=== PATIENT | female | born 1970 | race Caucasian/White ===

== ENCOUNTER → 2016-11-07 | Outpatient (CLI) | payer MEDICAID, BC ==
[2016-11-07 10:44] LABS: Basophils # (A) 0.1 k/uL (0-0.2); Basophils % (A) 1 %; CH 30.2; CHCM 32.2; Eosinophils # (A) 0.2 k/uL (0-0.7); Eosinophils % (A) 2 %; HCT 46.2 % (34.0-46.0); HDW 2.02; HGB 14.7 gm/dL (11.4-16.0); Luc # (Auto) 0.32; Luc % (Auto) 3; Lymphocytes # (A) 2.8 k/uL (1.0-4.8); Lymphocytes % (A) 30 %; MCHC 31.9 g/dL (31.0-37.0); MCV 94.2 fL (80.0-100.0); Mean Platelet Volume 6.8; Monocytes # (A) 0.7 k/uL (0-1.0); Monocytes % (A) 7 %; Neutrophils # (A) 5.1 k/uL (1.3-7.7); Neutrophils % (A) 55 %; RBC 4.91 m/uL (3.80-5.40); RDW 13.2 % (11.5-15.5); WBC 9.3 k/uL (3.8-10.6); WBC (Perox) 9.14
[2016-11-07 11:24] LABS: ALT 33 U/L (9-52); AST 23 U/L (14-36); Alkaline Phosphatase 93 U/L (38-126); Anion Gap 10 mmol/L; Blood Urea Nitrogen 18 mg/dL (7-17); Calcium 9.7 mg/dL (8.4-10.2); Carbon Dioxide 27 mmol/L (22-30); Chloride 105 mmol/L (98-107); Cholesterol 232 mg/dL (<200); Glucose 84 mg/dL (74-99); HDL Cholesterol 72 mg/dL (40-60); Non-African American GFR(MDRD) >60 (>60 ml/min/1.73 sqM); Potassium 4.6 mmol/L (3.5-5.1); Sodium 142 mmol/L (137-145); Total Bilirubin 0.6 mg/dL (0.2-1.3); Total Protein 7.2 g/dL (6.3-8.2); Triglycerides 111 mg/dL (<150)
== END | disposition home or self-care (01) ==
LOC: LABWHC1 08:44
PROVIDERS: ATTEND Family Medicine
DX: Z00.00 Encounter for general adult medical examination without abnormal findings (principal)
CPT/HCPCS: 36415; 80053; 80061; 85025

== ENCOUNTER → 2017-02-28 | Outpatient (CLI) | payer OTHER ==
--- NOTE | 2017-02-28 17:53 | XR ---
EXAMINATION TYPE: XR chest 2V DATE OF EXAM: 02/28/2017 COMPARISON: 05/22/2011 HISTORY: Chest pain TECHNIQUE: Frontal and lateral views of the chest are obtained. FINDINGS: There is no focal air space opacity. No evidence for pneumothorax. No pleural effusion. The cardiac silhouette size is within normal limits. The osseous structures are grossly intact. IMPRESSION: 1. No acute cardiopulmonary process.
--- NOTE | 2017-02-28 17:54 | XR ---
EXAMINATION TYPE: XR thoracic spine complete DATE OF EXAM: 02/28/2017 CLINICAL HISTORY: pain TECHNIQUE: Frontal, lateral, and swimmer's view of thoracic spine are obtained. COMPARISON: None. FINDINGS: Thoracic spine show satisfactory alignment without evidence of acute fracture or dislocatio n. Vertebral body heights are preserved. Mild scattered degenerative disc space narrowing and spondy losis. Visualized ribs are unremarkable. IMPRESSION: No acute fracture or dislocation is seen in the thoracic spine. ICD 10 NO FRACTURE, INIT IAL EVALUATION
== END | disposition home or self-care (01) ==
LOC: RADXRMAIN 17:24
PROVIDERS: ATTEND Emergency Medicine
DX: S23.3XXA Sprain of ligaments of thoracic spine, initial encounter (principal)
CPT/HCPCS: 71020; 72072

== ENCOUNTER 2019-12-27 03:30 | Emergency (ER) | payer BC, MEDICAID ==
[2019-12-27] MEDS ORDERED: SODIUM CHLORIDE 0.9% 1,000 ML IV STA ×2 (03:39→06:12)
--- NOTE | 2019-12-27 03:40 | ED ---
Fall HPI - General Stated Complaint: ETOH, Fall Time Seen by Provider: 12/27/19 03:38 Source: RN notes reviewed, old records reviewed, Caregiver (friend at bedside) Mode of arrival: EMS Limitations: no limitations, altered mental status (alcohol intoxication) - History of Present Illness Initial Comments: This is a 29-year-old female presents here by EMS for evaluation of fall significant alcohol intoxication. Patient admits to drinking 5 beers tonight, per EMS patient fell off a porch at about 1-1:30 tonight and mental status significantly gotten worse from that point. Per EMS patient was disoriented not acting appropriately upon arrival. Patient is having decreased sensation difficulty with controlling her left arm. 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: yes, by bystander Place Fall Occurred: home Loss of Consciousness: none Prolonged Down Time?: no Symptoms Prior to Fall: none Location: head Severity: moderate Severity scale (1-10): 3 Context: tripped/slipped Associated Symptoms: denies - Related Data Home Medications Medication Instructions Recorded Confirmed No Known Home Medications 12/27/19 12/27/19 Allergies Allergy/AdvReac Type Severity Reaction Status Date / Time latex Allergy Rash/Hives Verified 12/27/19 10:09 Sulfa (Sulfonamide Allergy Rash/Hives Verified 12/27/19 10:09 Antibiotics) Review of Systems ROS Statement: Those systems with pertinent positive or pertinent negative responses have been documented in the HPI. ROS Other: All systems not noted in ROS Statement are negative. General Exam - General Exam Comments Initial Comments: NIH of 7 Patient has left-sided weakness, left-sided sensation deficit, with facial droop and left-sided weakness, patient is left-sided drift which is worsening while here in the ER Limitations: altered mental status General appearance: alert, appears intoxicated, anxious, in distress Head exam: Present: atraumatic, normocephalic, normal inspection Eye exam: Present: normal appearance, PERRL, EOMI. Absent: scleral icterus, conjunctival injection, periorbital swelling ENT exam: Present: normal exam, mucous membranes moist Neck exam: Present: normal inspection. Absent: tenderness, meningismus, lymphadenopathy Respiratory exam: Present: normal lung sounds bilaterally. Absent: respiratory distress, wheezes, rales, rhonchi, stridor Cardiovascular Exam: Present: normal rhythm, tachycardia, normal heart sounds. Absent: systolic murmur, diastolic murmur, rubs, gallop, clicks GI/Abdominal exam: Present: soft, normal bowel sounds. Absent: distended, tenderness, guarding, rebound, rigid Extremities exam: Present: normal inspection, full ROM, normal capillary refill. Absent: tenderness, pedal edema, joint swelling, calf tenderness Back exam: Present: normal inspection Neurological exam: Present: altered, oriented X3, CN II-XII intact Psychiatric exam: Present: normal affect, normal mood Skin exam: Present: warm, dry, intact, normal color. Absent: rash Course Vital Signs 12/27/19 12/27/19 12/27/19 03:36 04:00 04:15 Temperature 98 F Pulse Rate 105 H 100 108 H Respiratory 16 18 18 Rate Blood Pressure 127/90 126/78 130/62 O2 Sat by Pulse 97 98 98 Oximetry 12/27/19 12/27/19 12/27/19 04:30 04:45 05:00 Temperature Pulse Rate 106 H 102 H 101 H Respiratory 18 18 18 Rate Blood Pressure 128/79 122/64 124/81 O2 Sat by Pulse 98 98 97 Oximetry 12/27/19 12/27/19 12/27/19 05:15 05:30 05:45 Temperature Pulse Rate 99 99 98 Respiratory 18 18 18 Rate Blood Pressure 117/71 127/77 123/72 O2 Sat by Pulse 98 98 98 Oximetry 12/27/19 12/27/19 12/27/19 06:00 06:30 07:00 Temperature Pulse Rate 99 99 98 Respiratory 18 18 18 Rate Blood Pressure 121/88 113/61 120/70 O2 Sat by Pulse 98 97 98 Oximetry 12/27/19 12/27/19 12/27/19 08:00 09:19 11:15 Temperature Pulse Rate 94 94 80 Respiratory 20 20 20 Rate Blood Pressure 124/77 120/62 122/69 O2 Sat by Pulse 97 97 97 Oximetry - Reevaluation(s) Reevaluation #1: 12/27/19 04:01 medical record is reviewed Reevaluation #2: 12/27/19 04:36 Spoke with friend who is at bedside, states that patient was able to ambulate up the stairs at 2am. Patient went outside for cigarette around 130 fell was brought inside the house they did notice some head injury and some bruising to her face, she did walk under her own power up the stairs at 2a and then later had significant episodes of vomiting greater than no is a patient wasn't really responding well and bring patient to emergency department by calling EMS, patients last drink was around 1a Reevaluation #3: 12/27/19 05:[address] Smith who patient not TPA candidate due to multiple factors including mainly alcohol severe intoxication and inability to consent to TPA, difficult to assess timing, improving symptoms Reevaluation #4: Patient symptoms still rapidly improving here in the emergency department - Consultations Consultation #1: Spoke with Dr. Tomlin was agreeable for admission Medical Decision Making - Medical Decision Making 49 female DF for evaluation, reassess multiple times here in the ER, unable to consent to TPA secondary to alcohol intoxication, patient symptoms continue to improve, focal neurological deficit is improving MH currently 2 patient be admitted for further neurological evaluation, MRI brain and monitoring for alcohol withdrawal - Lab Data Result diagrams: 12/27/19 03:44 12/27/19 03:44 Lab Results 12/27/19 12/27/19 12/27/19 Range/Units 03:44 03:44 03:44 WBC 10.8 H (3.8-10.6) k/uL RBC 4.93 (3.80-5.40) m/uL Hgb 14.9 (11.4-16.0) gm/dL Hct 46.1 H (34.0-46.0) % MCV 93.6 (80.0-100.0) fL MCH 30.2 (25.0-35.0) pg MCHC 32.3 (31.0-37.0) g/dL RDW 13.1 (11.5-15.5) % Plt Count 296 (150-450) k/uL Neutrophils % 54 % Lymphocytes % 31 % Monocytes % 7 % Eosinophils % 3 % Basophils % 1 % Neutrophils # 5.9 (1.3-7.7) k/uL Lymphocytes # 3.4 (1.0-4.8) k/uL Monocytes # 0.8 (0-1.0) k/uL Eosinophils # 0.3 (0-0.7) k/uL Basophils # 0.1 (0-0.2) k/uL PT 9.4 (9.0-12.0) sec INR 0.9 (<1.2) APTT 23.4 (22.0-30.0) sec Sodium 142 (137-145) mmol/L Potassium 4.5 (3.5-5.1) mmol/L Chloride 106 (98-107) mmol/L Carbon Dioxide 24 (22-30) mmol/L Anion Gap 12 mmol/L BUN 15 (7-17) mg/dL Creatinine 0.64 (0.52-1.04) mg/dL Est GFR (CKD-EPI)AfAm >90 (>60 ml/min/1.73 sqM) Est GFR (CKD-EPI)NonAf >90 (>60 ml/min/1.73 sqM) Glucose 116 H (74-99) mg/dL POC Glucose (mg/dL) (75-99) mg/dL POC Glu Roading Engineer ID Calcium 9.6 (8.4-10.2) mg/dL Phosphorus 4.0 (2.5-4.5) mg/dL Magnesium 2.1 (1.6-2.3) mg/dL Total Bilirubin 0.3 (0.2-1.3) mg/dL AST 31 (14-36) U/L ALT 32 (4-34) U/L Alkaline Phosphatase 116 (38-126) U/L Troponin I (0.000-0.034) ng/mL Total Protein 7.6 (6.3-8.2) g/dL Albumin 4.7 (3.5-5.0) g/dL Serum Alcohol 202 H* mg/dL Coronavirus (PCR) (Not Detectd) 12/27/19 12/27/19 12/27/19 Range/Units 03:44 03:44 07:59 WBC (3.8-10.6) k/uL RBC (3.80-5.40) m/uL Hgb (11.4-16.0) gm/dL Hct (34.0-46.0) % MCV (80.0-100.0) fL MCH (25.0-35.0) pg MCHC (31.0-37.0) g/dL RDW (11.5-15.5) % Plt Count (150-450) k/uL Neutrophils % % Lymphocytes % % Monocytes % % Eosinophils % % Basophils % % Neutrophils # (1.3-7.7) k/uL Lymphocytes # (1.0-4.8) k/uL Monocytes # (0-1.0) k/uL Eosinophils # (0-0.7) k/uL Basophils # (0-0.2) k/uL PT (9.0-12.0) sec INR (<1.2) APTT (22.0-30.0) sec Sodium (137-145) mmol/L Potassium (3.5-5.1) mmol/L Chloride (98-107) mmol/L Carbon Dioxide (22-30) mmol/L Anion Gap mmol/L BUN (7-17) mg/dL Creatinine (0.52-1.04) mg/dL Est GFR (CKD-EPI)AfAm (>60 ml/min/1.73 sqM) Est GFR (CKD-EPI)NonAf (>60 ml/min/1.73 sqM) Glucose (74-99) mg/dL POC Glucose (mg/dL) 111 H (75-99) mg/dL POC Glu Roading Engineer ID Fuentes Landy Calcium (8.4-10.2) mg/dL Phosphorus (2.5-4.5) mg/dL Magnesium (1.6-2.3) mg/dL Total Bilirubin (0.2-1.3) mg/dL AST (14-36) U/L ALT (4-34) U/L Alkaline Phosphatase (38-126) U/L Troponin I <0.012 (0.000-0.034) ng/mL Total Protein (6.3-8.2) g/dL Albumin (3.5-5.0) g/dL Serum Alcohol mg/dL Coronavirus (PCR) Not Detected (Not Detectd) - EKG Data -: EKG Interpreted by Me (EKG shows sinus tachycardia rate 102, PA 150, QRS 80, QTC 466) - Radiology Data Radiology results: report reviewed (CT brain is negative for acute disease, CT had neck negative for acute disease), image reviewed Critical Care Time Critical Care Time: Yes Total Critical Care Time: 31 Disposition Clinical Impression: Altered mental status, Alcohol intoxication, CVA (cerebral vascular accident) Disposition: ADMITTED IP TO THIS [facility] Condition: Fair Is patient prescribed a controlled substance at d/c from ED?: No Referrals: Mata Flores Jr, [Primary Care Provider] - 1-2 days
[2019-12-27 03:42] VITALS: TEMP 98
[2019-12-27 03:49] LABS: Glucose,Whole Blood 111 mg/dL (75-99)
[2019-12-27 04:06] LABS: Basophils # (A) 0.1 k/uL (0-0.2); Basophils % (A) 1 %; Eosinophils # (A) 0.3 k/uL (0-0.7); Eosinophils % (A) 3 %; HCT 46.1 % (34.0-46.0); HGB 14.9 gm/dL (11.4-16.0); Lymphocytes # (A) 3.4 k/uL (1.0-4.8); Lymphocytes % (A) 31 %; MCH 30.2 pg (25.0-35.0); MCHC 32.3 g/dL (31.0-37.0); MCV 93.6 fL (80.0-100.0); Mean Platelet Volume 7.1; Monocytes # (A) 0.8 k/uL (0-1.0); Monocytes % (A) 7 %; Neutrophils # (A) 5.9 k/uL (1.3-7.7); Neutrophils % (A) 54 %; Platelet Count 296 k/uL (150-450); RBC 4.93 m/uL (3.80-5.40); RDW 13.1 % (11.5-15.5); WBC 10.8 k/uL (3.8-10.6)
[2019-12-27 04:10] LABS: ALT 32 U/L (4-34); AST 31 U/L (14-36); African American GFR (CKD) >90 (>60 ml/min/1.73 sqM); Albumin 4.7 g/dL (3.5-5.0); Alkaline Phosphatase 116 U/L (38-126); Anion Gap 12 mmol/L; Blood Urea Nitrogen 15 mg/dL (7-17); Calcium 9.6 mg/dL (8.4-10.2); Carbon Dioxide 24 mmol/L (22-30); Chloride 106 mmol/L (98-107); Glucose 116 mg/dL (74-99); INR 0.9 (<1.2); Magnesium 2.1 mg/dL (1.6-2.3); Non-African American GFR(CKD) >90 (>60 ml/min/1.73 sqM); Partial Thromboplastin Time 23.4 sec (22.0-30.0); Potassium 4.5 mmol/L (3.5-5.1); Prothrombin Time 9.4 sec (9.0-12.0); Sodium 142 mmol/L (137-145); Total Bilirubin 0.3 mg/dL (0.2-1.3); Total Protein 7.6 g/dL (6.3-8.2)
--- NOTE | 2019-12-27 04:24 | CT ---
EXAMINATION TYPE: CT brain cspine wo con DATE OF EXAM: 12/27/2019 COMPARISON: None HISTORY: fall CT DLP: 1358.70 mGycm Automated exposure control for dose reduction was used. Ventricles and sulci appear normal. There is no mass effect nor midline shift. There is no sign of in tracranial hemorrhage. There is slight increased density in the anterior thalamus bilaterally consist ent with early thalamic calcification. The calvarium is intact. There is mild mucosal thickening post erior ethmoid air cells. Skull base is intact. Cervical vertebra have fairly normal spacing and alignment. Posterior elements are intact. Facet join ts appear normal. There is no evidence of a fracture. Prevertebral soft tissues appear normal. IMPRESSION: Negative CT scan of the cervical spine. Negative CT scan of the brain.
[2019-12-27 04:33] LABS: Alcohol 202 mg/dL
--- NOTE | 2019-12-27 05:01 | CT ---
EXAMINATION TYPE: CT angio head neck DATE OF EXAM: 12/27/2019 COMPARISON: None HISTORY: R/O Stroke CT DLP: 390.70 mGycm Automated exposure control for dose reduction was used. CONTRAST: Performed with IV Contrast, patient injected with 65 mL of Isovue 370. There are 3-D post processed images. There is normal branching pattern of the great vessels on the aortic arch. There is some plaque forma tion at the proximal left subclavian artery. There is bilateral arterial flow in the subclavian arter ies. There is arterial flow in the common internal and external carotid arteries bilaterally. There i s wide patency of the carotid artery bifurcations. There is bilateral arterial flow in the vertebral arteries. I see no evidence of carotid or vertebral artery aneurysm or dissection. There is arterial flow in the vertebrobasilar artery system. There is arterial flow in the anterior m iddle and posterior cerebral arteries. There is no mass effect. I see no evidence of intracranial ane urysm or neovascularity. I see no intracranial arterial stenosis. There is normal contrast opacificat ion of the venous sinuses. The calvarium is intact. There is mucus retention cyst left maxillary sinu s. IMPRESSION: Negative CT angiogram of the neck. Negative CT angiogram of the brain.
[2019-12-27] MEDS: SODIUM CHLORIDE 0.9% 1,000 ML IV ONE ×2 (05:30→06:25)
[2019-12-27] MEDS ORDERED: ASPIRIN 325 MG TAB PO STA (06:06)
[2019-12-27] MEDS ORDERED: THIAMINE 100 MG/ML 2 ML VIAL IM STA (06:12)
[2019-12-27] MEDS ORDERED: SODIUM CHLORIDE 0.9% 500 ML 500 ML IV STA (06:12)
[2019-12-27] MEDS ORDERED: LORazepam 2 MG/ML INJ IV PRN ×3 (06:12)
[2019-12-27] MEDS ORDERED: SODIUM CHLORIDE 0.9% 1,000 ML IV SCH (06:15)
[2019-12-27 08:03] VITALS: RESP 20
[2019-12-27] MEDS ORDERED: MULTIVITAMINS, THERA 1 EACH TAB PO SCH (09:00)
--- NOTE | 2019-12-27 09:26 | P.HPIM ---
History of Present Illness H&P Date: 12/27/19 Chief Complaint: Excessive alcohol, fall, significant mental status change with focal change Patient was at a friend's house socializing states she was using proper social distancing. Drank approximately 5 beers fell off the porch at approximately 08/20/1929 last night developed significant mental status changes worse from that of alcoholism and also focal changes consistent with left-sided weakness and expressive aphasia. Patient was seen and examined this morning in the emergency room at 9:08 AM and had completely resolved no focal weakness able to ambulate no speech difficulties or expressive aphasia. No other neurologic abnormalities: Testing rapid test was negative for: covid 19. CT/CTA angiogram all negative for bleed or neurologic insult, patient has MRI head pending this morning. Review of Systems Constitutional: Reports as per HPI, Reports fatigue Ears, nose, mouth and throat: Reports as per HPI Cardiovascular: Reports chest pain Respiratory: Reports as per HPI Gastrointestinal: Reports as per HPI Genitourinary: Reports as per HPI Menstruation: Reports as per HPI Integumentary: Reports as per HPI Neurological: Reports as per HPI (All neurologic symptoms appear to have resolved) Psychiatric: Reports as per HPI Endocrine: Reports as per HPI Hematologic/Lymphatic: Reports as per HPI Past Medical History Past Medical History: No Reported History History of Any Multi-Drug Resistant Organisms: None Reported Past Surgical History: No Surgical Hx Reported Smoking Status: Current every day smoker Past Alcohol Use History: Occasional Past Drug Use History: None Reported Medications and Allergies Allergies Allergy/AdvReac Type Severity Reaction Status Date / Time latex Allergy Rash/Hives Verified 12/27/19 03:43 Sulfa (Sulfonamide Allergy Rash/Hives Verified 12/27/19 03:43 Antibiotics) Physical Exam Osteopathic Statement: *. No significant issues noted on an osteopathic structural exam other than those noted in the History and Physical/Consult. Vitals: Vital Signs Temp Pulse Resp BP Pulse Ox 12/27/19 08:00 94 20 124/77 97 12/27/19 07:00 98 18 120/70 98 12/27/19 06:30 99 18 113/61 97 12/27/19 06:00 99 18 121/88 98 12/27/19 05:45 98 18 123/72 98 12/27/19 05:30 99 18 127/77 98 12/27/19 05:15 99 18 117/71 98 05/09/20 05:00 101 H 18 124/81 97 12/27/19 04:45 102 H 18 122/64 98 12/27/19 04:30 106 H 18 128/79 98 12/27/19 04:15 108 H 18 130/62 98 12/27/19 04:00 100 18 126/78 98 12/27/19 03:36 98 F 105 H 16 127/90 97 Intake and Output 12/26/19 12/27/19 12/27/19 22:59 06:59 14:59 Other: Weight 68.039 kg General: [Patient awake, alert and oriented times 3. Patient in no acute distress. Patient is afebrile no cough : covid 19 rapid screen negative HEENT: [PERRL. EOMI. No pharyngeal erythema or exudate.] Neck: [No adenopathy.] Cardiac: [Heart regular in rate and rhythm. No S3. No S4. No clicks, rubs. No murmur.] Lungs: [Clear to auscultation bilaterally.] Abdomen: [No mass. No organomegaly. Bowel sounds presnt and normoactive in all 4 quadrants.] Extremes: [No edema no cyanosis no claudication normal pulses] : [] Musculoskeletal: [No joint erythema, edema or tenderness.] Skin: [No rash.] Neurologic: No lateralizing deficits [resolved]. CN II - XII grossly intact. DTRs 2+ over 4 normal finger to nose normal heel to suarez heel-to-toe within normal limits tongue does not deviate smile facial muscles are completely intact Casino Worker strength is within normal limits, no evidence of expressive aphasia and speech is completely intact serial 9 serial sevens completely normal able to perform alphabet backwards and forwards Lymphatic: [No adenopathy.] Results CBC & Chem 7: 12/27/19 03:44 12/27/19 03:44 Labs: Abnormal Lab Results - Last 24 Hours (Table) 12/27/19 12/27/19 12/27/19 Range/Units 03:44 03:44 03:44 WBC 10.8 H (3.8-10.6) k/uL Hct 46.1 H (34.0-46.0) % Glucose 116 H (74-99) mg/dL POC Glucose (mg/dL) 111 H (75-99) mg/dL Serum Alcohol 202 H* mg/dL Thrombosis Risk Factor Assmnt - DVT/VTE Prophylaxis DVT/VTE Prophylaxis: Low risk, early ambulation encouraged Assessment and Plan (1) Alcohol intoxication Current Visit: Yes Status: Acute Code(s): F10.929 - ALCOHOL USE, UNSPECIFIED WITH INTOXICATION, UNSPECIFIED SNOMED Code(s): 46184829 (2) Fall Current Visit: Yes Status: Acute Code(s): W19.XXXA - UNSPECIFIED FALL, INITIAL ENCOUNTER SNOMED Code(s): 2134319 (3) Focal motor deficit Current Visit: Yes Status: Acute Code(s): R29.898 - OTH SYMPTOMS AND SIGNS INVOLVING THE MUSCULOSKELETAL SYSTEM SNOMED Code(s): 221925357 (4) Acute focal neurologic deficit with complete resolution Current Visit: Yes Status: Acute Code(s): Z87.898 - PERSONAL HISTORY OF OTHER SPECIFIED CONDITIONS SNOMED Code(s): 819066363 Plan: Patient has MRI and I ordered this morning will complete this We will discharged home following MRI Will schedule appointment as outpatient at my office for Sunday We'll schedule appointment with Dr. Guille Reyna DO neurology that day Recommend patient start baby aspirin 1 by mouth daily for now Probable TIA versus CVA we'll follow closely as outpatient We'll discharge home today patient has completely resolved and there will be no neurologic consult until Sunday Time with Patient: Greater than 30
--- NOTE | 2019-12-27 09:33 | P.DS ---
Providers Date of admission: 12/27/19 06:12 Expected date of discharge: 12/27/19 Attending physician: David Felder Consults: 12/27/19 06:11 Consult Physician Routine Consulting Provider: Anna Thurman Consult Reason/Comments: cva Do you want consulting provider notified?: Yes Primary care physician: Mata Flores - Discharge Diagnosis(es) (1) Alcohol intoxication Current Visit: No Status: Acute (2) Fall Current Visit: No Status: Acute (3) Focal motor deficit Current Visit: No Status: Acute (4) Acute focal neurologic deficit with complete resolution Current Visit: No Status: Acute Hospital Course: Patient was admitted to the ER, was not given TPA probably secondary to alcohol intoxication All patient's symptoms have completely resolved Anticipate completing MRI then sending patient home Will discharge home on baby aspirin 81 mg Patient Condition at Discharge: Stable Plan - Discharge Summary Follow up Appointment(s)/Referral(s): Mata Flores Jr, [Primary Care Provider] - 1-2 days Care Plan Goals (MU): We'll see patient in office as outpatient on Sunday Schedule appointment with Dr. Reyna neurology at that time Discharge home today, following MRI, with daughter Plan of Treatment: May discharge home with daughter, following MRI this morning
[2019-12-27 11:20] VITALS: BP 122/69; PULSE 80
--- NOTE | 2019-12-27 11:24 | MR ---
EXAMINATION TYPE: MR brain wo/w con DATE OF EXAM: 12/27/2019 11:11 AM COMPARISON: NONE HISTORY: Fall, R/O CVA TECHNIQUE: Multiplanar, multiecho imaging of the brain was obtained with and without intravenous adm inistration of 7 mL intravenous Gadavist. FINDINGS: Midline structures are unremarkable. There is a normal craniocervical junction. Echoplanar diffusion imaging is normal. There are sinus mucosal disease involving the left maxillary sinus. There are normal vascular flow voids. The orbits are unremarkable. There is no evidence of a CP angle mass lesion. There is a large amount of patient motion artifact on this study. Allowing for this, there is no disc rete abnormality seen. There is no mass effect or midline shift. I do not see evidence of intracrania l blood. Following intravenous administration of gadolinium, I do not see evidence of abnormal enhancement. IMPRESSION: 1. SUBOPTIMAL EXAMINATION DUE TO PATIENT MOTION. 2. NO ACUTE INTRACRANIAL ABNORMALITY. 3. LEFT MAXILLARY SINUS MUCOSAL DISEASE.
--- NOTE | 2019-12-27 12:00 | ECHOF ---
Referral Reason:[facility] MEASUREMENTS -------- HEIGHT: 165.1 cm WEIGHT: 68.0 kg BP: RVIDd: 2.6 cm (< 3.3) IVSd: 1.2 cm (0.6 - 1.1) LVIDd: 3.8 cm (3.9 - 5.3) LVPWd: 1.0 cm (0.6 - 1.1) IVSs: 1.5 cm LVIDs: 2.6 cm LVPWs: 1.4 cm LAESV Index (A-L): 18.31 ml/m Ao Diam: 2.6 cm (2.0 - 3.7) AV Cusp: 1.4 cm (1.5 - 2.6) LA Diam: 3.1 cm (2.7 - 3.8) MV EXCURSION: 12.148 mm (> 18.000) MV EF SLOPE: 108 mm/s (70 - 150) EPSS: 0.6 cm MV E Jamie: 1.06 m/s MV DecT: 180 ms MV A Jamie: 0.32 m/s MV E/A Ratio: 3.31 RAP: 15.00 mmHg RVSP: 33.43 mmHg FINDINGS -------- Sinus rhythm. This was a technically difficult study with suboptimal views. The left ventricular size is normal. There is borderline concentric left ventricular hypertrophy. Overall left ventricular systolic function is normal with, an EF between 55 - 60 %. The diastolic filling pattern is normal for the age of the patient 10.28. False Tendon Visualized in the LV The right ventricle is normal in size. Normal LA size by volume 22+/-6 ml/m2. The right atrial size is normal. Lumason used to rule out clot. The aortic valve is trileaflet, and appears structurally normal. No aortic stenosis or regurgitation. The mitral valve is normal. There is trace mitral regurgitation. The tricuspid valve appears structurally normal. Trace tricuspid regurgitation present. Right jamal tricular systolic pressure is normal at < 35 mmHg. The pulmonic valve was not well visualized. There is no pulmonic regurgitation present. The aortic root size is normal. The inferior vena cava is mildly dilated. There is no pericardial effusion. CONCLUSIONS -------- 1. There is borderline concentric left ventricular hypertrophy. 2. Overall left ventricular systolic function is normal with, an EF between 55 - 60 %. 3. The diastolic filling pattern is normal for the age of the patient 10.28 4. False Tendon Visualized in the LV 5. Normal LA size by volume 22+/-6 ml/m2. 6. Lumason used to rule out clot. 7. The aortic valve is trileaflet, and appears structurally normal. No aortic stenosis or regurgitati on. 8. There is trace mitral regurgitation. 9. Trace tricuspid regurgitation present. 10. There is no pulmonic regurgitation present. 11. The inferior vena cava is mildly dilated. 12. There is no pericardial effusion. TURF SALES PERSON: Paola Whitaker RDCS
[2019-12-27] MEDS ORDERED: THIAMINE 100 MG TAB PO SCH (17:30)
[2019-12-27] MEDS ORDERED: ATORVASTATIN 80 MG TAB PO SCH (21:00)
[2019-12-28] MEDS ORDERED: ASPIRIN 325 MG TAB PO SCH (09:00)
== END 2019-12-27 12:23 | disposition other institution (70) ==
LOC: EC 03:30 → 3SCARD 06:12 → UNDOADMOB 06:12 → 3SCARD 08:55 → EC 12:23
DX: Z03.818 Encounter for observation for suspected exposure to other biological agents ruled out (principal); I63.9 Cerebral infarction, unspecified; R47.81 Slurred speech; R53.1 Weakness; F10.129 Alcohol abuse with intoxication, unspecified; G81.94 Hemiplegia, unspecified affecting left nondominant side; R41.82 Altered mental status, unspecified; R29.810 Facial weakness; R06.09 Other forms of dyspnea; R29.707 NIHSS score 7; S00.83XA Contusion of other part of head, initial encounter; R11.10 Vomiting, unspecified; F41.9 Anxiety disorder, unspecified; F17.200 Nicotine dependence, unspecified, uncomplicated; Z91.040 Latex allergy status; Z88.2 Allergy status to sulfonamides; W17.89XA Other fall from one level to another, initial encounter; Y92.008 Other place in unspecified non-institutional (private) residence as the place of occurrence of the external cause
CPT/HCPCS: 99291; 96372; 96360; 96361 ×2; 36415; 93005; 93306; 80053; 83735; 84100; 84484; 85025; 85610; 85730; 80320; 87635; 72125; 70496; 70450; 70498; 70553; J3411; A9585; Q9950; Q9967

== ENCOUNTER → 2020-06-17 | Outpatient (CLI) | payer MEDICAID | END | disposition home or self-care (01) | LOC: LABWHC1 08:25 | PROVIDERS: ATTEND Pediatrics Pediatric Infectious Diseases | DX: Z03.818 Encounter for observation for suspected exposure to other biological agents ruled out (principal) | CPT/HCPCS: U0003; C9803 ==

== ENCOUNTER → 2020-06-21 | Outpatient (CLI) | payer MEDICAID | END | disposition home or self-care (01) | LOC: LABWHC1 12:30 | PROVIDERS: ATTEND Pediatrics Pediatric Infectious Diseases | DX: Z20.828 Contact with and (suspected) exposure to other viral communicable diseases (principal) | CPT/HCPCS: U0003; C9803 ==

== ENCOUNTER → 2021-04-28 | Outpatient (CLI) | payer MEDICAID | END | disposition home or self-care (01) | LOC: LABWHC1 15:31 | PROVIDERS: ATTEND Emergency Medicine | DX: U07.1 COVID-19 (principal) | CPT/HCPCS: 87635 ==

== ENCOUNTER → 2021-08-17 | Outpatient (CLI) | payer MEDICAID ==
--- NOTE | 2021-08-18 04:20 | MR ---
EXAMINATION TYPE: MR shoulder RT wo con DATE OF EXAM: 08/17/2021 COMPARISON: 02/24/2016 HISTORY: Right shoulder pain and limited movment for over a year Multiplanar multi echo imaging of the right shoulder without contrast. The supraspinatus tendon is intact. There is no retraction. There is minor spurring at the AC joint. There is no significant subacromial impingement. The subscapularis tendon is intact. Glenoid laura ap pear intact. The biceps tendon is intact. There is fat stranding and increased fluid signal around th e anterior aspect of the humeral head. There is a very small shoulder joint effusion. There is a 10 x 4 mm area of low signal within the fluid anterior to the humeral head that could be some calcific bu rsitis. The scapula is intact. There is no evidence of a fracture. IMPRESSION: No evidence of rotator cuff tear. Moderate fluid in the subdeltoid bursa with low signal foci that ar e consistent with calcific bursitis. No fracture.
== END | disposition home or self-care (01) ==
LOC: RADMRIMAIN 19:12
PROVIDERS: ATTEND Orthopaedic Surgery
DX: M25.511 Pain in right shoulder (principal)

== ENCOUNTER → 2021-09-13 | Outpatient (CLI) | payer MEDICAID ==
[2021-09-13 17:59] LABS: Basophils # (A) 0.07 X 10*3/uL (0.00-0.10); Basophils % (A) 0.9 %; Eosinophils # (A) 0.18 X 10*3/uL (0.04-0.35); Eosinophils % (A) 2.3 %; HCT 42.2 % (37.2-46.3); HGB 13.6 g/dL (12.0-15.0); Lymphocytes # (A) 2.82 X 10*3/uL (0.90-5.00); Lymphocytes % (A) 35.3 %; MCH 30.2 pg (27.0-32.0); MCHC 32.2 g/dL (32.0-37.0); MCV 93.6 fL (80.0-97.0); Mean Platelet Volume 9.5 fL (9.5-12.2); Monocytes # (A) 0.83 X 10*3/uL (0.20-1.00); Monocytes % (A) 10.4 %; Neutrophils # (A) 4.09 X 10*3/uL (1.80-7.70); Platelet Count 343 X 10*3/uL (140-440); RBC 4.51 X 10*6/uL (4.10-5.20); RDW 13.2 % (11.5-14.5)
[2021-09-13 18:05] LABS: Anion Gap 12.3 mmol/L (10.00-18.00); Carbon Dioxide 25.7 mmol/L (20.0-27.5); Potassium 4.6 mmol/L (3.5-5.5)
== END | disposition home or self-care (01) ==
LOC: LABPAT 13:19
PROVIDERS: ATTEND Orthopaedic Surgery
DX: Z01.818 Encounter for other preprocedural examination (principal); M75.41 Impingement syndrome of right shoulder; R94.31 Abnormal electrocardiogram [ECG] [EKG]
CPT/HCPCS: 80051; 85025; 93005

== ENCOUNTER 2021-09-29 07:44 | Day surgery (SDC) | payer MEDICAID ==
[2021-09-26 16:11] VITALS: BMI 31.6
--- NOTE | 2021-09-28 20:08 | HP ---
HISTORY AND PHYSICAL DATE OF SURGERY: 09/29/2021 Chelsea Daniel is a 51-year-old patient seen with progressive right shoulder pain. We discussed options for treatment. She elected to proceed with arthroscopy. Consent was obtained. PAST MEDICAL HISTORY: Noncontributory. PAST SURGICAL HISTORY: Noncontributory. DAILY MEDICATIONS: Ibuprofen. ALLERGIES: LATEX AND SULFA. SOCIAL HISTORY: She smokes half a pack of cigarettes daily. PHYSICAL EVALUATION OF THE RIGHT SHOULDER: Flexion 140 degrees. Abduction was 130 degrees. External rotation is 40 degrees with weakness. There is tenderness along the anterolateral acromion and rotator cuff insertion site. Impingement is positive at 90 degrees. Cross-body adduction sign is positive. Drop-arm sign is positive. Distal neurovascular exam is intact. Right shoulder radiographs revealed a type 2 acromion, evidence for acromioclavicular joint osteoarthritis and cystic changes of the greater tuberosity. Right shoulder MRI revealed acromioclavicular joint osteoarthritis as well as a calcific lesion within the subacromial space. IMPRESSION: 1. Right shoulder impingement with calcific tendinitis and possible rotator cuff tear. 2. Right shoulder acromioclavicular joint osteoarthritis. PLAN: Right shoulder arthroscopy with subacromial decompression, possible arthroscopic rotator cuff repair, Eleno procedure and debridement. MMODL / IJN: [id number] /
[~2021-09-29 07:44] MED LIST: DEXAMETHASONE SOD PHOSPHATE 4 MG/ML 1 ML VIAL IV ONE; HYDROmorphone 0.5 MG/0.5 ML SYRINGE IVP PRN; LACTATED RINGERS 1,000 ML IV SCH; LIDOCAINE 1% (10MG/ML) FOR IV START INTRADERMA PRN; ONDANSETRON 4 MG/2 ML VIAL IVP ONE; SCOPOLAMINE 1.5MG/72HR PATCH TRANSDERM ONE
[2021-09-29] MEDS ORDERED: MIDAZOLAM 2 MG/2 ML VIAL IVP ONE (08:45)
[2021-09-29] MEDS ORDERED: fentaNYL (PF) 50 MCG/ML 2 ML AMP IVP ONE (08:45)
[2021-09-29] MEDS ORDERED: MIDAZOLAM 2 MG/2 ML VIAL ONE (09:32)
[2021-09-29] MEDS ORDERED: ROPIVACAINE 5 MG/ML 30 ML VIAL ONE (09:32)
[2021-09-29] MEDS ORDERED: SUCCINYLCHOLINE CHLORIDE 100 MG/5 ML SYR IV ONE (09:32)
[2021-09-29] MEDS ORDERED: LIDOCAINE 1% INJ 10MG/ML (20 ML MDV) ONE (09:32)
[2021-09-29] MEDS ORDERED: PROPOFOL 10 MG/ML 20 ML VIAL IV ONE (09:32)
[2021-09-29] MEDS ORDERED: fentaNYL (PF) 50 MCG/ML 2 ML AMP ONE (09:32)
--- NOTE | 2021-09-29 10:29 | P.ANPRN ---
Procedure Note - Anesthesia - Nerve Block Performed Right Interscalene Time Out Performed: Yes (08:44) Date of Procedure: 09/29/21 Procedure Start Time: Procedure Stop Time: Location of Patient: PreOp Indication: Acute Post-Operative Pain, Requested by Surgeon (Dr Garcia) Sedation Type: Sedate with meaningful contact maintained Preparation: Sterile Prep Position: Supine Catheter: None Needle Types: Pajunk Needle Gauge: Other (see comment) (22g) Ultrasound used to visualize needle placement: Yes Ultrasound used to observe medication spread: Yes Injectate: 0.5% Ropivacaine (see comment for volume) (20cc + Decadron 4mg) Blood Aspirated: No Pain Paresthesia on Injection Noted: No Resistance on Injection: Normal Image Stored and Saved: Yes Events: Uneventful and Well Tolerated
[2021-09-29 11:05] VITALS: TEMP 97
--- NOTE | 2021-09-29 11:10 | P.OP ---
Date of Procedure: 09/29/21 Preoperative Diagnosis: Right shoulder impingement Postoperative Diagnosis: 1. Right shoulder rotator cuff tear 2. Right shoulder impingement Procedure(s) Performed: 1. Right shoulder arthroscopic rotator cuff repair 2. Right shoulder arthroscopic subacromial decompression Anesthesia: GETA, regional (Interscalene block) Surgeon: Brian Garcia Embedded Engineer #1: Daniel Donnelly Estimated Blood Loss (ml): 10 Pathology: none sent Condition: stable Disposition: PACU Indications for Procedure: 51-year-old patient seen with progressive right shoulder pain. After treatment options were discussed, she elected to proceed with arthroscopy. Operative Findings: see description of procedure Description of Procedure: Patient underwent an interscalene block by department of anesthesia. The patie nt was then taken to the operative suite. The patient underwent a general anesthetic by the department of anesthesia. The patient was placed into a lateral position and secured. There was appropriate padding of the bony prominence. Right shoulder was then prepped and draped in normal sterile orthopedic fashion. We placed the extremity in 10 pounds of longitudinal traction. A posterior incision was now made for a posterior working portal site. The trocar and cannula were inserted into the glenohumeral joint. Arthroscopy was initiated. Spinal needle was now inserted anteriorly, to ascertain the anterior working portal site. An incision was now made in that area, a trocar was inserted followed by a probe. The labrum was probed and it was found to be stable. The biceps was stable. There was no significant chondromalacia present. At this point instruments removed from glenohumeral joint. Utilizing the posterior working portal site, the trocar and cannula were inserted into the subacromial space. Arthroscopy initiated. I made an incision 2 fingerbreadths lateral to the acromion. I introduced my trocar followed by my ArthroCare ablator. I now began ablating thick subacromial bursal tissue, which exposed the undersurface of the anterior acromion. There was diminished subacromial space. There was a very prominent anterior acromion. A motorized bur was introduced and a subacromial decompression was performed. I also excised some osteophytes off the inferior aspect of the distal clavicle. The acromioclavicular joint appeared to have some mild osteoarthritic changes but not enough toward a Eleno procedure. I now began evaluating the rotator cuff tendon. I noted a full-thickness perforation along the anterior aspect of the distal supraspinatus. Upon probing the area was some calcification within the tendon itself. This was consistent with calcific tendinitis. I debrided that getting down to stable tendon tissue. The defect measured proximal 1 cm. I abraded the footprint with a motorized bur. With the assistance of Percy BURDEN I passed 2 everted mattress sutures through good bites of rotator cuff tendon. I now punched a hole at the footprint for insertion of an anchor. All 4 limbs of suture were passed through the eyelet of a 5.5 Arthrex swivel lock anchor. I placed the eyelet into the pre-punch hole. I held it in position while Percy BURDEN tensioned all 4 suture limbs and deployed the anchor with good fixation noted. All residual suture limbs were now clipped. We had good compression of the tendon along the entire footprint. Instruments now removed from the portal sites. All portal sites were approximated with nylon suture. Sterile dressings were applied followed by a shoulder sling. Percy BURDEN assisted in this complex case. The patient was awakened, transferred to a bed, and taken to recovery in stable condition.
[2021-09-29 12:33] VITALS: RESP 18
[2021-09-29 12:34] VITALS: BP 132/66; PULSE 47
== END 2021-09-29 13:05 | disposition home or self-care (01) ==
LOC: OR 07:44
PROVIDERS: ATTEND Orthopaedic Surgery
DX: M75.101 Unspecified rotator cuff tear or rupture of right shoulder, not specified as traumatic (principal); F17.210 Nicotine dependence, cigarettes, uncomplicated
CPT/HCPCS: 29827; 29826; 64415; 76942; C1713; J2250; J1100; J0690; J2405; J2001; J3010; J2795; J0330; J2704

== ENCOUNTER → 2022-05-30 | Outpatient (CLI) | payer MEDICAID ==
[2022-05-30 18:47] LABS: Basophils # (A) 0.11 X 10*3/uL (0.00-0.10); Basophils % (A) 1.2 %; Eosinophils # (A) 0.22 X 10*3/uL (0.04-0.35); Eosinophils % (A) 2.5 %; HCT 41.2 % (37.2-46.3); HGB 13.3 g/dL (12.0-15.0); Immature Grans, Automated 0.1 %; Lymphocytes # (A) 2.57 X 10*3/uL (0.90-5.00); Lymphocytes % (A) 29.1 %; MCH 30.4 pg (27.0-32.0); MCHC 32.3 g/dL (32.0-37.0); MCV 94.1 fL (80.0-97.0); Mean Platelet Volume 9.4 fL (9.5-12.2); Monocytes # (A) 1.01 X 10*3/uL (0.20-1.00); Monocytes % (A) 11.5 %; NRBC Per 100 WBC 0 /100 WBCS (0.0-0.0); Neutrophils % (A) 55.6 %; Platelet Count 287 X 10*3/uL (140-440); RBC 4.38 X 10*6/uL (4.10-5.20); RDW 13.2 % (11.5-14.5); WBC 8.82 X 10*3/uL (4.50-10.00)
[2022-05-30 19:10] LABS: ALT 64 U/L (8-44); AST 36 U/L (13-35); African American GFR (CKD) 115.5 (60.0-200.0); Albumin 4.1 g/dL (3.8-4.9); Albumin/Globulin Ratio 1.86 (1.60-3.17); Alkaline Phosphatase 125 U/L (41-126); Calcium 9.4 mg/dL (8.7-10.3); Carbon Dioxide 27.4 mmol/L (20.0-27.5); Chloride 103 mmol/L (96-109); Globulin 2.2 g/dL (1.6-3.3); Glucose 96 mg/dL (70-110); Luteinizing Hormone 54.2 mIU/mL; Non-African American GFR(CKD) 99.6 (60.0-200.0); Potassium 4.5 mmol/L (3.5-5.5); Sodium 140 mmol/L (135-145); Total Protein 6.3 g/dL (6.2-8.2)
[2022-05-30 19:17] LABS: Estradiol <5.0 pg/mL
== END | disposition home or self-care (01) ==
LOC: LABWHC1 12:05
PROVIDERS: ATTEND Family Medicine
DX: Z00.00 Encounter for general adult medical examination without abnormal findings (principal); Z13.220 Encounter for screening for lipoid disorders; Z13.29 Encounter for screening for other suspected endocrine disorder
CPT/HCPCS: 36415; 80053; 82670; 83001; 83002; 84443; 85025

== ENCOUNTER → 2024-01-25 | Outpatient (CLI) | payer MEDICAID ==
[2024-01-25 17:20] LABS: ALT 38 U/L (8-44); AST 25 U/L (13-35); Albumin 4.2 g/dL (3.8-4.9); Albumin/Globulin Ratio 2.33 Ratio (1.60-3.17); Alkaline Phosphatase 127 U/L (41-126); BUN/Creat Ratio 23.29 Ratio (12.00-20.00); Blood Urea Nitrogen 16.3 mg/dL (9.0-27.0); Calcium 9.5 mg/dL (8.7-10.3); Carbon Dioxide 26.9 mmol/L (21.6-31.8); Chloride 105 mmol/L (96-109); Estradiol <20.0 pg/mL; Globulin 1.8 g/dL (1.6-3.3); Glucose 92 mg/dL (70-110); Potassium 5.4 mmol/L (3.5-5.5); Sodium 143 mmol/L (135-145); T4, Free (Free Thyroxine) 1.02 ng/dL (0.80-1.80); Total Bilirubin 0.3 mg/dL (0.3-1.2)
[2024-01-25 18:28] LABS: Follicle Stimulating Hormone 87.4 mIU/mL
== END | disposition home or self-care (01) ==
LOC: LABWHC1 11:30
PROVIDERS: ATTEND Family Medicine
DX: N95.1 Menopausal and female climacteric states (principal)
CPT/HCPCS: 36415; 80053; 82670; 83001; 83002; 84439; 84443

== ENCOUNTER 2024-08-30 12:36 | Emergency (ER) | payer MEDICAID ==
--- NOTE | 2024-08-30 13:44 | ED ---
General Adult HPI - General Chief complaint: Abdominal Pain Stated complaint: Abd pain Time Seen by Provider: 08/30/24 13:12 Source: patient, RN notes reviewed Mode of arrival: ambulatory Limitations: no limitations - History of Present Illness Initial comments: 53-year-old female presents to the emergency department for evaluation of abdominal pain. Patient reports that has been ongoing for 2 days. She reports that the pain is in the epigastric region and radiates to her back. She states that she took ibuprofen without relief. She admits to nausea without vomiting. Denies recent fever, chills. Denies any prior abdominal surgeries. - Related Data Previous Rx's Medication Instructions Recorded Ibuprofen 800 mg PO Q8H PRN #40 tab 09/29/21 oxyCODONE HCL [OxyIR] 5 mg PO Q6HR PRN #28 tab 09/29/21 Omeprazole [PriLOSEC] 20 mg PO AC-BRKFST #90 cap 09/01/24 Allergies Allergy/AdvReac Type Severity Reaction Status Date / Time latex Allergy Rash/Hives Verified 08/30/24 12:58 Sulfa (Sulfonamide Allergy Rash/Hives Verified 08/30/24 12:58 Antibiotics) acetaminophen AdvReac Rash/Hives Verified 08/30/24 12:58 Review of Systems ROS Statement: Those systems with pertinent positive or pertinent negative responses have been documented in the HPI. ROS Other: All systems not noted in ROS Statement are negative. Past Medical History Past Medical History: No Reported History History of Any Multi-Drug Resistant Organisms: None Reported Past Surgical History: No Surgical Hx Reported Additional Past Surgical History / Comment(s): rotator cuff R Smoking Status: Current every day smoker Past Alcohol Use History: Occasional Past Drug Use History: None Reported General Exam Limitations: no limitations General appearance: alert, in no apparent distress Head exam: Present: atraumatic, normocephalic, normal inspection Eye exam: Present: normal appearance, PERRL, EOMI. Absent: scleral icterus, conjunctival injection, periorbital swelling ENT exam: Present: normal exam, mucous membranes moist Respiratory exam: Present: normal lung sounds bilaterally. Absent: respiratory distress, wheezes, rales, rhonchi, stridor Cardiovascular Exam: Present: regular rate, normal rhythm, normal heart sounds. Absent: systolic murmur, diastolic murmur, rubs, gallop, clicks GI/Abdominal exam: Present: soft, tenderness (Epigastric), normal bowel sounds. Absent: distended, guarding, rebound, rigid Extremities exam: Present: normal inspection, full ROM, normal capillary refill. Absent: tenderness, pedal edema, joint swelling, calf tenderness Neurological exam: Present: alert, oriented X3 Psychiatric exam: Present: normal affect, normal mood Skin exam: Present: warm, dry, intact, normal color. Absent: rash Course Vital Signs 08/30/24 08/30/24 08/30/24 12:58 15:38 18:26 Temperature 98.1 F 97.8 F Pulse Rate 95 69 69 Respiratory 18 18 17 Rate Blood Pressure 130/66 119/67 136/83 O2 Sat by Pulse 95 97 96 Oximetry Medical Decision Making - Medical Decision Making Was pt. sent in by a medical professional or institution (, PA, REFRACTORY MANAGER, urgent care, hospital, or [place] health care facility...) When possible be specific @ -No Did you speak to anyone other than the patient for history (EMS, parent, family, police, friend...)? What history was obtained from this source @ -No Did you review nursing and triage notes (agree or disagree)? Why? @ -I reviewed and agree with nursing and triage notes Were old charts reviewed (outside hosp., previous admission, EMS record, old EKG, old radiological studies, urgent care reports/EKG's, [place] health care facility records)? Report findings @ -No old charts were reviewed Differential Diagnosis (chest pain, altered mental status, abdominal pain women, abdominal pain men, vaginal bleeding, weakness, fever, dyspnea, syncope, headache, dizziness, GI bleed, back pain, seizure, CVA, palpatations, mental health, musculoskeletal)? @ -Differential Abdominal Pain Women: Appendicitis, Cholecystitis, diverticulosis, ischemic bowel, pancreatitis, hepatitis, UTI, gastroenteritis, AAA, incarcerated hernia, bowel obstruction, constipation, inflammatory bowel, hepatitis, peptic ulcer disease, splenic infarction, perforated viscus, vulvitis, ovarian torsion, PID, kidney stone, placenta abruption, this is not meant to be an all-inclusive list EKG interpreted by me (3pts min.). @ -None X-rays interpreted by me (1pt min.). @ -None done CT interpreted by me (1pt min.). @ -CT abdomen pelvis shows mild inflammatory changes around the pancreas, hepatic steatosis, 14 mm ovarian cyst on the left U/S interpreted by me (1pt. min.). @ -Ultrasound of the gallbladder shows normal wall thickness, hepatic steatosis What testing was considered but not performed or refused? (CT, X-rays, U/S, labs)? Why? @ -None What meds were considered but not given or refused? Why? @ -None Did you discuss the management of the patient with other professionals (professionals i.e. , PA, REFRACTORY MANAGER, lab, RT, psych nurse, psychiatric social worker, metal room dental technician, teacher, financial compliance officer, telephonic nurse case manager)? Give summary @ -Case discussed with Dr. Peterson Was smoking cessation discussed for >3mins.? @ -No Was critical care preformed (if so, how long)? @ -No Were there social determinants of health that impacted care today? How? (Homelessness, low income, unemployed, alcoholism, drug addiction, transportation, low edu. Level, literacy, decrease access to med. care, nursing home, rehab)? @ -No Was there de-escalation of care discussed even if they declined (Discuss DNR or withdrawal of care, Hospice)? DNR status @ -No What co-morbidities impacted this encounter? (DM, HTN, Smoking, COPD, CAD, Cancer, CVA, ARF, Chemo, Hep., AIDS, mental health diagnosis, sleep apnea, morbid obesity)? @ -None Was patient admitted / discharged? Hospital course, mention meds given and route, prescriptions, significant lab abnormalities, going to OR and other pertinent info. @ -Discharged. Patient presented to the emergency department for evaluation of epigastric abdominal pain x 2 days. Laboratory studies obtained revealing Leukocytosis at 15.4, hemoglobin stable; LFTs unremarkable, no significant lactic acidosis, serum lipase 125; UA shows small blood, no evidence of infectious process. Ultrasound of the gallbladder was obtained shows hepatic steatosis with focal fat sparing, no acute process. CT abdomen pelvis shows subtle fat stranding around the anterior pancreas, lipase was normal at 125. Patient was given a dose of Toradol in the ED which significantly improved her pain. Patient is feeling better and would like to be discharged home. Recommended increasing hydration, gentle diet. Patient stable at time of discharge. Case discussed with Dr. Haines. Undiagnosed new problem with uncertain prognosis? @ -No Drug Therapy requiring intensive monitoring for toxicity (Heparin, Nitro, Insulin, Cardizem)? @ -No Were any procedures done? @ -No Diagnosis/symptom? @ -Abdominal pain Acute, or Chronic, or Acute on Chronic? @ -acute Uncomplicated (without systemic symptoms) or Complicated (systemic symptoms)? @ -uncomplicated Side effects of treatment? @ -No Exacerbation, Progression, or Severe Exacerbation? @ -No Poses a threat to life or bodily function? How? (Chest pain, USA, DC, pneumonia, PE, COPD, DKA, ARF, appy, cholecystitis, CVA, Diverticulitis, Homicidal, Suicidal, threat to staff... and all critical care pts) @ -No - Lab Data Result diagrams: 08/30/24 14:05 08/30/24 14:05 Lab Results 08/30/24 08/30/24 08/30/24 Range/Units 14:05 14:05 14:05 WBC 15.4 H (3.8-10.6) k/uL RBC 4.63 (3.80-5.40) m/uL Hgb 14.1 (11.4-16.0) gm/dL Hct 41.9 (34.0-46.0) % MCV 90.6 (80.0-100.0) fL MCH 30.4 (25.0-35.0) pg MCHC 33.6 (31.0-37.0) g/dL RDW 12.6 (11.5-15.5) % Plt Count 393 (150-450) k/uL MPV 6.4 Neutrophils % 68 % Lymphocytes % 20 % Monocytes % 9 % Eosinophils % 1 % Basophils % 1 % Neutrophils # 10.4 H (1.3-7.7) k/uL Lymphocytes # 3.1 (1.0-4.8) k/uL Monocytes # 1.4 H (0-1.0) k/uL Eosinophils # 0.2 (0-0.7) k/uL Basophils # 0.1 (0-0.2) k/uL Sodium 139 (137-145) mmol/L Potassium 4.3 (3.5-5.1) mmol/L Chloride 107 (98-107) mmol/L Carbon Dioxide 27 (22-30) mmol/L Anion Gap 5 mmol/L BUN 18 H (7-17) mg/dL Creatinine 0.65 (0.52-1.04) mg/dL Est GFR (CKD-EPI)AfAm >90 (>60 ml/min/1.73 sqM) Est GFR (CKD-EPI)NonAf >90 (>60 ml/min/1.73 sqM) Glucose 117 H (74-99) mg/dL Plasma Lactic Acid John 1.1 (0.7-2.0) mmol/L Calcium 9.1 (8.4-10.2) mg/dL Total Bilirubin 0.3 (0.2-1.3) mg/dL AST 16 (14-36) U/L ALT 22 (4-34) U/L Alkaline Phosphatase 120 (38-126) U/L Total Protein 5.7 L (6.3-8.2) g/dL Albumin 3.3 L (3.5-5.0) g/dL Amylase 50 (30-110) U/L Lipase 125 (23-300) U/L Urine Color Urine Appearance (Clear) Urine pH (5.0-8.0) Ur Specific [place] (1.001-1.035) Urine Protein (Negative) Urine Glucose (UA) (Negative) Urine Ketones (Negative) Urine Blood (Negative) Urine Nitrite (Negative) Urine Bilirubin (Negative) Urine Urobilinogen (<2.0) mg/dL Ur Leukocyte Esterase (Negative) Urine RBC (0-5) /hpf Urine WBC (0-5) /hpf Ur Squamous Epith Cells (0-4) /hpf Calcium Oxalate Crystal (None) /hpf Urine Bacteria (None) /hpf Hyaline Casts (0-2) /lpf Urine Mucus (None) /hpf 08/30/24 Range/Units 14:05 WBC (3.8-10.6) k/uL RBC (3.80-5.40) m/uL Hgb (11.4-16.0) gm/dL Hct (34.0-46.0) % MCV (80.0-100.0) fL MCH (25.0-35.0) pg MCHC (31.0-37.0) g/dL RDW (11.5-15.5) % Plt Count (150-450) k/uL MPV Neutrophils % % Lymphocytes % % Monocytes % % Eosinophils % % Basophils % % Neutrophils # (1.3-7.7) k/uL Lymphocytes # (1.0-4.8) k/uL Monocytes # (0-1.0) k/uL Eosinophils # (0-0.7) k/uL Basophils # (0-0.2) k/uL Sodium (137-145) mmol/L Potassium (3.5-5.1) mmol/L Chloride (98-107) mmol/L Carbon Dioxide (22-30) mmol/L Anion Gap mmol/L BUN (7-17) mg/dL Creatinine (0.52-1.04) mg/dL Est GFR (CKD-EPI)AfAm (>60 ml/min/1.73 sqM) Est GFR (CKD-EPI)NonAf (>60 ml/min/1.73 sqM) Glucose (74-99) mg/dL Plasma Lactic Acid John (0.7-2.0) mmol/L Calcium (8.4-10.2) mg/dL Total Bilirubin (0.2-1.3) mg/dL AST (14-36) U/L ALT (4-34) U/L Alkaline Phosphatase (38-126) U/L Total Protein (6.3-8.2) g/dL Albumin (3.5-5.0) g/dL Amylase (30-110) U/L Lipase (23-300) U/L Urine Color Yellow Urine Appearance Cloudy H (Clear) Urine pH 5.5 (5.0-8.0) Ur Specific [place] 1.027 (1.001-1.035) Urine Protein 2+ H (Negative) Urine Glucose (UA) Negative (Negative) Urine Ketones Negative (Negative) Urine Blood Small H (Negative) Urine Nitrite Negative (Negative) Urine Bilirubin Negative (Negative) Urine Urobilinogen <2.0 (<2.0) mg/dL Ur Leukocyte Esterase Negative (Negative) Urine RBC 2 (0-5) /hpf Urine WBC 4 (0-5) /hpf Ur Squamous Epith Cells 10 H (0-4) /hpf Calcium Oxalate Crystal Moderate H (None) /hpf Urine Bacteria Occasional H (None) /hpf Hyaline Casts 4 H (0-2) /lpf Urine Mucus Occasional H (None) /hpf Disposition Clinical Impression: Abdominal pain Disposition: HOME SELF-CARE Condition: Stable Instructions (If sedation given, give patient instructions): Abdominal Pain (ED) Additional Instructions: Please follow up with your primary care provider. Return to the emergency department for new or worsening symptoms. Prescriptions: Omeprazole [PriLOSEC] 20 mg PO AC-BRKFST #90 cap Is patient prescribed a controlled substance at d/c from ED?: No Referrals: Mata Flores Jr, DO [Primary Care Provider] - 1-2 days
[2024-08-30 14:13] LABS: Basophils # (A) 0.1 k/uL (0-0.2); Basophils % (A) 1 %; Eosinophils # (A) 0.2 k/uL (0-0.7); Eosinophils % (A) 1 %; HCT 41.9 % (34.0-46.0); HGB 14.1 gm/dL (11.4-16.0); Lymphocytes # (A) 3.1 k/uL (1.0-4.8); Lymphocytes % (A) 20 %; MCH 30.4 pg (25.0-35.0); MCHC 33.6 g/dL (31.0-37.0); MCV 90.6 fL (80.0-100.0); Mean Platelet Volume 6.4; Monocytes # (A) 1.4 k/uL (0-1.0); Monocytes % (A) 9 %; Neutrophils # (A) 10.4 k/uL (1.3-7.7); Neutrophils % (A) 68 %; Platelet Count 393 k/uL (150-450); RBC 4.63 m/uL (3.80-5.40); RDW 12.6 % (11.5-15.5); WBC 15.4 k/uL (3.8-10.6)
[2024-08-30 14:20] LABS: Appearance,Urine Cloudy (Clear); Bacteria,Urine Occasional /hpf; Bilirubin,Urine Negative (Negative); Blood,Urine Small (Negative); Calcium Oxalate Crystals,Urine Moderate /hpf; Color,Urine Yellow; Glucose,Urine (UA) Negative (Negative); Hyaline Casts,Urine 4 /lpf (0-2); Ketones,Urine Negative (Negative); Leukocyte Esterase,Urine Negative (Negative); Mucus,Urine Occasional /hpf; Nitrite,Urine Negative (Negative); PH, Urine 5.5 (5.0-8.0); Protein,Urine 2+ (Negative); RBC,Urine 2 /hpf (0-5); Specific Gravity,Urine 1.027 (1.001-1.035); Squamous Epithelial Cell,Urine 10 /hpf (0-4); Urobilinogen,Urine <2.0 mg/dL (<2.0); WBC,Urine 4 /hpf (0-5)
[2024-08-30 14:24] LABS: ALT 22 U/L (4-34); AST 16 U/L (14-36); African American GFR (CKD) >90 (>60 ml/min/1.73 sqM); Albumin 3.3 g/dL (3.5-5.0); Alkaline Phosphatase 120 U/L (38-126); Amylase 50 U/L (30-110); Anion Gap 5 mmol/L; Blood Urea Nitrogen 18 mg/dL (7-17); Calcium 9.1 mg/dL (8.4-10.2); Carbon Dioxide 27 mmol/L (22-30); Chloride 107 mmol/L (98-107); Glucose 117 mg/dL (74-99); Lipase 125 U/L (23-300); Non-African American GFR(CKD) >90 (>60 ml/min/1.73 sqM); Potassium 4.3 mmol/L (3.5-5.1); Sodium 139 mmol/L (137-145); Total Bilirubin 0.3 mg/dL (0.2-1.3); Total Protein 5.7 g/dL (6.3-8.2)
--- NOTE | 2024-08-30 15:01 | US ---
EXAMINATION TYPE: US gallbladder DATE OF EXAM: 08/30/2024 COMPARISON: NONE CLINICAL INDICATION: Female, 53 years old with history of abd pain; Abdominal pain TECHNIQUE: Grayscale and color Doppler imaging of the right upper quadrant was performed. FINDINGS: EXAM MEASUREMENTS: Liver Length: 14.9 cm Gallbladder Wall: 0.19 cm CBD: 0.63 cm Right Kidney: 9.3 x 5.0 x 4.7 cm BELLOWS TESTER NOTES: Pancreas: parts seen appear wnl Liver: heterogeneous. Hypoechoic area adjacent to GB, probable fatty sparing Gallbladder: wnl Evidence for sonographic Cristina's sign: No CBD: wnl Right Kidney: wnl IMPRESSION: Hepatic steatosis with focal fatty sparing, no acute process.. [facility], , 08/30/2024 2:59 PM
[2024-08-30 15:40] VITALS: PULSE 69
[2024-08-30] MEDS: KETOROLAC 15 MG/ML 1 ML VIAL IVP STA (16:12)
--- NOTE | 2024-08-30 16:42 | CT ---
EXAMINATION TYPE: CT abdomen pelvis w con DATE OF EXAM: 08/30/2024 4:14 PM COMPARISON: None CLINICAL INDICATION: Female, 53 years old with history of abd pain; right sided abdominal pain TECHNIQUE: Axial CT abdomen pelvis w con;Sagittal and coronal reformats were created on a separate w orkstation. Contrast used:100 mL of Isovue 300 with IV Contrast, (none if empty) Oral contrast used: without Oral Contrast (none if empty) CT DLP: 1008.3 mGycm, Automated exposure control for dose reduction was used. FINDINGS: LOWER CHEST: Unremarkable ABDOMEN LIVER: Diffusely hypoattenuating parenchyma. GALLBLADDER AND BILE DUCTS: Unremarkable. PANCREAS: Mild Fat stranding changes along the anterior aspect of the pancreas. SPLEEN: Unremarkable. ADRENAL GLANDS: Unremarkable. KIDNEYS AND URETERS: No evidence of hydronephrosis or renal calculus. The ureters are unremarkable. PELVIS BLADDER: No evidence for wall thickening or mass given limitations of exam. REPRODUCTIVE: 14 mm left ovarian cyst. ABDOMEN & PELVIS STOMACH AND BOWEL: No evidence of bowel obstruction. The appendix is normal. PERITONEUM/RETROPERITONEUM: No evidence of pneumoperitoneum or free fluid. VASCULATURE: No evidence of aortic aneurysm. MUSCULOSKELETAL: No acute osseous abnormalities LYMPH NODES: No gross evidence for lymphadenopathy. SOFT TISSUE/ABDOMINAL WALL: Unremarkable IMPRESSION: 1. No evidence for obstructive uropathy or renal calculus. The appendix is normal. 2. Hepatic steatosis. 3. Left ovarian 14 mm cyst. 4. Subtle Fat stranding along the anterior pancreas correlate with serum lipase. [facility], , 08/30/2024 4:39 PM
[2024-08-30 18:29] VITALS: BP 136/83; RESP 17; TEMP 97.8
== END 2024-08-30 18:34 | disposition home or self-care (01) ==
LOC: EC 12:36
DX: N83.202 Unspecified ovarian cyst, left side (principal); K76.0 Fatty (change of) liver, not elsewhere classified; R10.13 Epigastric pain; F17.200 Nicotine dependence, unspecified, uncomplicated; Z88.2 Allergy status to sulfonamides; Z91.040 Latex allergy status; Z88.8 Allergy status to other drugs, medicaments and biological substances
CPT/HCPCS: 99284; 96374; 36415; 80053; 82150; 83605; 83690; 85025; 81001; 76705; 74177; J1885; Q9967

== ENCOUNTER → 2024-11-21 | Outpatient (CLI) | payer MEDICAID ==
--- NOTE | 2024-11-21 09:02 | MM ---
Reason for Exam: Screening (asymptomatic). Last mammogram was performed 10 year(s) and 0 month(s) ago. Patient History: Menarche at age 15. First Full-Term at age 22. Postmenopausal. Risk Values: Kaelyn 5 year model risk: 1.0%. NCI Lifetime model risk: 6.7%. Prior Study Comparison: 11/30/2014 Bilateral Screening Mammogram, [facility]. Tissue Density: The breasts are extremely dense, which lowers the sensitivity of mammography. Findings: Analyzed By CAD. There is no suspicious group of microcalcifications or new suspicious mass in either breast. Overall Assessment: Benign, BI-RAD 2 Management: Screening Mammogram of both breasts in 1 year. . Patient should continue monthly self-breast exams. A clinical breast exam by your physician is recommended on an annual basis. This exam should not preclude additional follow-up of suspicious palpable abnormalities. Note on Kaelyn scores and lifetime risk: 1. A Kaelyn score greater than 3% is considered moderate risk. If this is the case, consider specialist referral to assess eligibility for a risk reducing agent. 2. If overall lifetime risk for the development of breast cancer is 20% or higher, the patient may qualify for future screening with alternating mammogram and breast MRI. [facility], , 11/21/2024 9:00 AM. Electronically signed and approved by: Eulogio Buckley M.D. [facility]
== END | disposition home or self-care (01) ==
LOC: RADMAMWWP 08:30
PROVIDERS: ATTEND Family Medicine
DX: Z12.31 Encounter for screening mammogram for malignant neoplasm of breast (principal); R92.343 Mammographic extreme density, bilateral breasts; Z78.0 Asymptomatic menopausal state
CPT/HCPCS: 77067

== ENCOUNTER → 2024-11-24 | Outpatient (CLI) | payer MEDICAID ==
[2024-11-24 15:04] LABS: Basophils # (A) 0.08 X 10*3/uL (0.00-0.10); Basophils % (A) 1.2 %; Eosinophils # (A) 0.21 X 10*3/uL (0.04-0.35); Eosinophils % (A) 3.2 %; Lymphocytes # (A) 2.28 X 10*3/uL (0.90-5.00); Lymphocytes % (A) 35.1 %; MCH 30.3 pg (27.0-32.0); MCHC 32.6 g/dL (32.0-37.0); MCV 93.1 FL (80.0-97.0); Mean Platelet Volume 8.9 FL (9.5-12.2); Monocytes # (A) 0.75 X 10*3/uL (0.20-1.00); Monocytes % (A) 11.5 %; NRBC Per 100 WBC 0 X 10*3/uL (0.00-0.01); Neutrophils # (A) 3.16 X 10*3/uL (1.80-7.70); Neutrophils % (A) 48.7 %; Platelet Count 340 X 10*3/uL (140-440); RBC 4.62 X 10*6/uL (4.10-5.20); RDW 13.5 % (11.5-14.5)
[2024-11-24 15:28] LABS: ALT 26 U/L (8-44); AST 21 U/L (13-35); Albumin 3.9 g/dL (3.8-4.9); Albumin/Globulin Ratio 2.05 Ratio (1.60-3.17); Alkaline Phosphatase 129 U/L (41-126); BUN/Creat Ratio 23.17 Ratio (12.00-20.00); Blood Urea Nitrogen 13.9 mg/dL (9.0-27.0); Calcium 9.2 mg/dL (8.7-10.3); Carbon Dioxide 27.8 mmol/L (21.6-31.8); Chloride 106 mmol/L (96-109); Chol/HDL Ratio 3.56 Ratio; Globulin 1.9 g/dL (1.6-3.3); Glucose 107 mg/dL (70-110); LDL Cholesterol,Calculated 160.5 mg/dL (0.0-131.0); Potassium 4.8 mmol/L (3.5-5.5); Sodium 143 mmol/L (135-145); T4, Free (Free Thyroxine) 0.86 ng/dL (0.80-1.80); Total Bilirubin 0.3 mg/dL (0.3-1.2); Total Protein 5.8 g/dL (6.2-8.2)
== END | disposition home or self-care (01) ==
LOC: LABWHC1 08:15
DX: Z00.00 Encounter for general adult medical examination without abnormal findings (principal); E66.09 Other obesity due to excess calories; Z68.32 Body mass index [BMI] 32.0-32.9, adult; Z79.899 Other long term (current) drug therapy
CPT/HCPCS: 36415; 80053; 80061; 82306; 84439; 84443; 85025